=== PATIENT | male | born 1950 | race Caucasian/White ===

== ENCOUNTER → 2019-08-05 11:58 | Outpatient (BNVA) | payer MEDICARE, OTHER, SELFPAY | PROVIDERS: Family Provider Family Medicine; PCP Family Medicine; Visit Provider Podiatrist Foot & Ankle Surgery | DX: S92.334A Nondisplaced fracture of third metatarsal bone, right foot, initial encounter for closed fracture (principal); X58.XXXA Exposure to other specified factors, initial encounter; M79.89 Other specified soft tissue disorders | CPT/HCPCS: 73630 ==

== ENCOUNTER 2019-08-17 14:37 | Outpatient (CLI) | payer MEDICARE, OTHER, SELFPAY ==
--- NOTE | 2019-08-17 14:46 | US_ITS ---
WS: [id number] Subcutaneous ultrasound of the right foot, 08/17/2019 Clinical Data: ?HO'S NEUROMA OF R FOOT/LESION OF PLANTAR NERVE R FOOT Comparison: None. Findings: There is soft tissue swelling over the dorsum of the foot. No definite neuroma is seen. There are no cysts or masses. The heads of the metatarsals could be seen. US/ soft tissue/extremity [id number] Impression: 1. Negative for definite neuroma. 2. Soft tissue swelling over dorsum of foot.
== END 2019-08-17 14:38 | disposition home or self-care (01) ==
LOC: RAD 14:42
PROVIDERS: Family Provider Family Medicine; PCP Family Medicine; Visit Provider Podiatrist Foot & Ankle Surgery
DX: G57.61 Lesion of plantar nerve, right lower limb (principal); M79.89 Other specified soft tissue disorders
CPT/HCPCS: 76882

== ENCOUNTER 2020-03-15 13:28 | Outpatient (CLI) | payer MEDICARE, OTHER, SELFPAY ==
--- NOTE | 2020-03-15 13:48 | XRR_ITS ---
PROCEDURE INFORMATION: Exam: XR Chest, 2 Views Exam date and time: 03/15/2020 2:12 PM Age: 69 years old Clinical indication: Contact with (suspected) exposure to asbestos TECHNIQUE: Imaging protocol: XR of the chest Views: 2 views. COMPARISON: CR Chest 2 views* [id number] 03/13/2017 11:07 AM FINDINGS: Lungs: No lung consolidation or pulmonary edema. Pleural space: No pleural effusion or pneumothorax. No sign of calcified pleural plaque formation. Heart/Mediastinum: The cardiac silhouette is not enlarged. The mediastinal contours are normal. Bones/joints: Slight curvature of the thoracic spine convex to the right. Mild multilevel bridging osteophyte formation in the spine. XR/XR chest 2V* [id number] IMPRESSION: No acute abnormality.
== END 2020-03-15 13:29 | disposition home or self-care (01) ==
LOC: RAD 13:35
PROVIDERS: PCP Family Medicine; Visit Provider Internal Medicine Pulmonary Disease
DX: Z77.090 Contact with and (suspected) exposure to asbestos (principal)
CPT/HCPCS: 71046

== ENCOUNTER 2020-03-16 13:35 | Outpatient (CLI) | payer MEDICARE, SELFPAY ==
--- NOTE | 2020-03-16 13:46 | XRR_ITS ---
PROCEDURE INFORMATION: Exam: XR Temporomandibular Joints, Open and Closed Mouth Exam date and time: 03/16/2020 2:49 PM Age: 69 years old Clinical indication: Jaw pain TECHNIQUE: Imaging protocol: XR of the bilateral temporomandibular joints, open and closed mouth views. COMPARISON: No relevant prior studies available. FINDINGS: Sinuses: Well aerated. No opacification. Bones/joints: There is no fracture or dislocation of the mandible. There is no focal osseous lesion. There is mild flattening and sclerosis of the left condylar head. On transition from closed open-mouth views there is normal anterior translation of the condylar heads bilaterally. Anterior translation is slightly anterior to the apex of the articular eminence bilaterally. Soft tissues: Unremarkable. XR/[place] [id number] IMPRESSION: 1. No fracture or dislocation. 2. Bilateral normal anterior translation on mouth opening. 3. Mild flattening and sclerosis of the left condylar head consistent with osteoarthritis.
== END 2020-03-16 13:36 | disposition home or self-care (01) ==
LOC: RAD 13:39
PROVIDERS: PCP Family Medicine; Visit Provider Family Medicine
DX: R68.84 Jaw pain (principal)
CPT/HCPCS: 70330

== ENCOUNTER 2020-12-18 16:26 | Inpatient (IN) | payer MEDICARE, OTHER, SELFPAY ==
[2020-12-18 16:36] VITALS: BP 169/65; PULSE 79; RESP 16; TEMP 38.3; O2SAT 94; BMI 26.6
--- NOTE | 2020-12-18 16:58 | CTR_ITS ---
PROCEDURE INFORMATION: Exam: CT Head Without Contrast Exam date and time: 12/18/2020 4:58 PM Age: 70 years old Clinical indication: Patient HX: C/O fever and weakness; Additional info: Headache TECHNIQUE: Imaging protocol: Computed tomography of the head without contrast. Radiation optimization: All CT scans at this facility use at least one of these dose optimization techniques: automated exposure control; mA and/or kV adjustment per patient size (includes targeted exams where dose is matched to clinical indication); or iterative reconstruction. COMPARISON: No relevant prior studies available. RADIATION DOSE METRICS: Total DLP (mGy-cm): 952.34 FINDINGS: Brain: There is a focal hypodensity in the left thalamus suggesting a chronic lacunar infarct. There is diffuse cerebral atrophy and chronic microvascular white matter disease. There is no acute intracranial hemorrhage. Cerebral ventricles: There is mild ex vacuo dilation of the lateral ventricles. The basal cisterns are unremarkable. Paranasal sinuses: The paranasal sinuses are clear. Mastoid air cells: The mastoid air cells are clear. Bones/joints: The calvarium is intact. Soft tissues: The visible extracranial soft tissues are unremarkable. CT/CT head wo con* [id number] IMPRESSION: 1. No acute findings. 2. Old lacunar infarct in the left thalamus. Radiation Dose CTDIVOL = (mGy): DLP = 952.34 (mGy-cm)
--- NOTE | 2020-12-18 16:59 | ED_ITS ---
Documented by User: Qamar Mckenzie MD 12/18/20 17:38 HPI - General Adult General: Chief complaint: Fever Stated complaint: chills, n/v, over heated Time Seen by Provider: 12/18/20 16:57 History of Present Illness: HPI narrative: This patient is a 70-year-old male who presents to the emergency room for weakness fatigue and complaint of fever chills. Patient was out in the heat yesterday riding his bike for quite a while. Patient has come home but thinks he got overheated. Fever and a temperature of around 100. Patient complaint weakness fatigue loss of appetite. Did get sick at his stomach and vomited today. This did happen once before couple years ago. is concerned that he had a stroke. States before he had a MRI that showed he had a mild stroke in the past she does not know whether he has had a stroke or a heatstroke. Will do medical evaluation treat as needed Onset (ago): day(s) Associated symptoms: Deny chest pain, dyspnea, headache(s), nausea, rash, palpitations or vomiting Review of Systems General: Reports: 10 or more systems reviewed and unremarkable except in HPI and below Const: Denies: fever(s), chills, body aches or fatigue Eyes: Denies: change in vision or blurry vision ENMT: Denies: throat pain, hoarseness or mouth pain Card: Denies: chest pain, palpitations, irregular heart rhythm, edema, swelling of feet/ankles or lightheadedness Resp: Denies: dyspnea, productive cough, non-productive cough, wheezing or pain on inspiration GI: Denies: abdominal pain, nausea or vomiting : Denies: flank pain, dysuria, urinary frequency, urinary urgency or urinary hesitancy Musc: Reports: extremity pain; Denies: neck pain, back pain, extremity swelling, joint pain, joint swelling, joint redness, joint warmth or limited range of motion Skin/Breast: Denies: rash, pruritus, erythema or skin tenderness Neuro: Reports: weakness in extremities; Denies: headache(s) or numbness in extremities Psych: Denies: anxiety or depression PFSH ED PFSH: Family History Denies family history of Diabetes CAD (coronary artery disease) Clotting disorder Dementia Hyperlipidemia Psychiatric illness Chronic kidney disease (CKD) Suicide Anesthesia complication Bleeding disorder Family history of premature coronary artery disease Lung disease Cancer Hypertension Stroke Social History Smoking and tobacco status: never smoked Alcohol intake: never Current occupational status: retired Physical Exam Const: COMMON NORMALS: no acute distress, average body habitus, patient oriented x3, no limitations, healthy appearing, alert and well nourished ORIENTATION/CONSCIOUSNESS: Yes oriented to person and Yes oriented to place HENMT: COMMON NORMALS: normocephalic, atraumatic, hearing grossly normal bilaterally, external ears normal, EAC's normal, TM's normal bilaterally, Normal external nose present, Normal nasal mucous membranes and turbinates present, moist oral mucous membranes, oropharynx normal, dentition normal and gingiva normal HEAD & SCALP: normocephalic and atraumatic NOSE: Normal external nose present and Normal nasal mucous membranes and turbinates present EXT ERNAL EAR: Yes external ears normal EXTERNAL AUDITORY CANAL: EAC's normal TYMPANIC MEMBRANE: TM's normal bilaterally Neck/C-Spine: COMMON NORMALS: full ROM, no lymphadenopathy, supple, no meningeal signs, no JVD, Thyroid normal and No carotid bruits THYROID: Thyroid normal Chest: COMMONS NORMALS: normal inspection of the chest, normal palpation of entire chest wall, normal inspection of the breasts and normal palpation of the breasts Breast/axilla inspection: Yes normal inspection of the breasts BREAST/AXILLA PALPATION: Yes normal palpation of the breasts Resp: COMMON NORMALS: normal respiratory effort, No retractions, No use of accessory muscles, clear to auscultation bilaterally and percussion normal AUSCULTATION: clear to auscultation bilaterally PERCUSSION: percussion normal Cardio: COMMON NORMALS: no JVD, regular rate, regular rhythm, S1 normal heart sound present, S2 normal heart sound present, No gallops present (Cardio), No clicks present (Cardio), No murmurs present (Cardio), No rub (Cardio) and Peripheral pulses 2+ throughout RATE: regular rate RHYTHM: regular rhythm HEART SOUNDS: S1 normal heart sound present and S2 normal heart sound present PERIPHERAL PULSES: Peripheral pulses 2+ throughout GI: COMMON NORMALS: Normal to inspection, nondistended, normoactive bowel sounds present, Soft to palpation, non-tender, No hepatosplenomegaly present, no masses and no bruits PALPATION: Yes Soft to palpation and Yes No hepatosplenomegaly present : COMMON NORMALS: Yes no CVA tenderness BLADDER/KIDNEY EXAM: Yes no CVA t enderness Back/Pelvis: COMMON NORMALS: no CVA tenderness, thoracic and lumbar spine normal to inspection, no thoracic nor lumbar tenderness, thoraco-lumbar ROM normal and straight leg raise negative bilaterally Extremity: COMMON NORMALS: normal to inspection, full ROM, capillary refill normal, no joint enlargement, no clubbing, cyanosis or edema, no calf tenderness and no pedal edema Neuro: COMMON NORMALS: patient oriented x3, moves all extremities, no focal motor deficits, no sensory deficits noted and deep tendon reflexes 2+ bilaterally SENSORIUM/ORIENTATION: Yes alert, Yes oriented to person and Yes oriented to place MENINGEAL SIGNS: Yes no meningeal signs Course Consultations: Consultation #1: Care transferred to Dr. Edward for shift change Time: 17:38 Vital Signs: Vital signs: Vital Signs Temperature 99.9 F H 12/18/20 19:00 Pulse Rate 85 12/18/20 18:51 Respiratory Rate 18 12/18/20 18:51 Blood Pressure 172/64 12/18/20 18:51 Pulse Oximetry 93 12/18/20 18:51 MDM - General Adult Lab Data: Labs: Lab Results 12/18/20 12/18/20 12/18/20 Range/Units 17:25 17:25 17:39 WBC 14.8 H (4.0-10.0) 10^3/ uL RBC 4.90 (4.1-5.3) 10^6/u L Hgb 15.1 (11.7-16.6) g/dL Hct 44.1 (42.0-52.0) % MCV 90.0 (80-94) fL MCH 30.8 (28.0-34.0) pg MCHC 34.2 (30.0-36.0) g/dL RDW 12.0 L (12.1-15.1) % Plt Count 286 (130-400) 10^3/c mm MPV 9.5 (7.4-10.4) fL Neut % (Auto) 83.1 % Lymph % (Auto) 6.1 % [place] % (Auto) 10.2 % Eos % (Auto) 0.0 % Baso % (Auto) 0.2 % Neut # (Auto) 12.34 H (1.8-7.7) 10^3/u L Lymph # (Auto) 0.9 (0.8-4.8) 10^3/u L [place] # (Auto) 1.5 H (0.2-0.9) 10^3/u L Eos # (Auto) 0.0 (0.0-0.8) 10^3/u L Baso # (Auto) 0.0 (0.0-0.1) 10^3/u L Nucleated RBC % (a uto) 0 % Nucleated RBCs # 0.0 /100WBC PT (12.1-14.9) SECO NDS INR (0.8-1.2) APTT (23.9-36.7) SECO NDS Sodium 137 (136-145) mmol/L Potassium 4.2 (3.5-5.1) mmol/L Chloride 97 L (98-107) mmol/L Carbon Dioxide 27 (22-29) mmol/L Anion Gap 17.2 (5-19) BUN 16 (8-23) mg/dL Creatinine 1.1 (0.7-1.2) mg/dL GFR Calculation Not Reportable Glucose 201 H (65-115) mg/dL Calculated Osmolal ity 291 (285-295) mOsm/k g Calcium 8.5 (8.5-10.5) mg/dL Total Bilirubin 0.5 (0.15-1.2) mg/dL AST 16 (0-40) U/L ALT 14 (0-41) U/L Alkaline Phosphata se 71 (40-130) IU/L Creatine Kinase 122 (39-308) U/L Total Protein 7.1 (6.6-8.7) g/dL Albumin 3.9 (3.5-5.2) g/dL Globulin 3.2 (1.3-4.6) g/dL Urine Color Yellow (Yellow) Urine Appearance Sl hazy (CLEAR) Urine pH 5 (5-7) Ur Specific Gravit y 1.020 (1.005-1.030) Urine Protein 3+ H (Negative) Urine Glucose (UA) 1+ (Normal) Urine Ketones 2+ H (Negative) Urine Blood 2+ H (Negative) Urine Nitrate Negative (Negative) Urine Bilirubin Neg (Negative) Urine Urobilinogen Norm (Negative) mg/dL Ur Leukocyte Meaghan ase Negative (Negative) Urine RBC Rare (0-2) /hpf Urine WBC Rare (0-5) /hpf Ur Squamous Epith Cells None (0-5) /hpf Amorphous Sediment Not Reportable Urine Bacteria Trace (NONE) /hpf Fine Granular Cast s 0-4 H /lpf Urine Mucus 1+ /hpf 12/18/ Range/Units 18:14 WBC (4.0-10.0) 10^3/ uL RBC (4.1-5.3) 10^6/u L Hgb (11.7-16.6) g/dL Hct (42.0-52.0) % MCV (80-94) fL MCH (28.0-34.0) pg MCHC (30.0-36.0) g/dL RDW (12.1-15.1) % Plt Count (130-400) 10^3/c mm MPV (7.4-10.4) fL Neut % (Auto) % Lymph % (Auto) % [place] % (Auto) % Eos % (Auto) % Baso % (Auto) % Neut # (Auto) (1.8-7.7) 10^3/u L Lymph # (Auto) (0.8-4.8) 10^3/u L [place] # (Auto) (0.2-0.9) 10^3/u L Eos # (Auto) (0.0-0.8) 10^3/u L Baso # (Auto) (0.0-0.1) 10^3/u L Nucleated RBC % (a uto) % Nucleated RBCs # /100WBC PT 14.90 (12.1-14.9) SECO NDS INR 1.14 (0.8-1.2) APTT 30.2 (23.9-36.7) SECO NDS Sodium (136-145) mmol/L Potassium (3.5-5.1) mmol/L Chloride (98-107) mmol/L Carbon Dioxide (22-29) mmol/L Anion Gap (5-19) BUN (8-23) mg/dL Creatinine (0.7-1.2) mg/dL GFR Calculation Glucose (65-115) mg/dL Calculated Osmolal ity (285-295) mOsm/k g Calcium (8.5-10.5) mg/dL Total Bilirubin (0.15-1.2) mg/dL AST (0-40) U/L ALT (0-41) U/L Alkaline Phosphata se (40-130) IU/L Creatine Kinase (39-308) U/L Total Protein (6.6-8.7) g/dL Albumin (3.5-5.2) g/dL Globulin (1.3-4.6) g/dL Urine Color (Yellow) Urine Appearance (CLEAR) Urine pH (5-7) Ur Specific Gravit y (1.005-1.030) Urine Protein (Negative) Urine Glucose (UA) (Normal) Urine Ketones (Negative) Urine Blood (Negative) Urine Nitrate (Negative) Urine Bilirubin (Negative) Urine Urobilinogen (Negative) mg/dL Ur Leukocyte Meaghan ase (Negative) Urine RBC (0-2) /hpf Urine WBC (0-5) /hpf Ur Squamous Epith Cells (0-5) /hpf Amorphous Sediment Urine Bacteria (NONE) /hpf Fine Granular Cast s /lpf Urine Mucus /hpf Discharge Plan Discharge Patient Disposition: Admitted As Inpatient Admit Provider: Lakia Grier Clinical Impression: Community acquired pneumonia Qualifiers: Laterality: right Lung location: lower lobe of lung Qualified Code(s): J18.9 - Pneumonia, unspecified organism Condition: Stable Coding Level of Care Code ED Solder Technician for g Fwd Exam Comprehensive Documented by User: Rehana Hester MD 12/18/20 21:01 HPI - General Adult General: Chief complaint: Fever Stated complaint: chills, n/v, over heated Time Seen by Provider: 12/18/20 16:57 PFSH ED PFSH: Family History Denies family history of Diabetes CAD (coronary artery disease) Clotting disorder Dementia Hyperlipidemia Psychiatric illness Chronic kidney disease (CKD) Suicide Anesthesia complication Bleeding disorder Family history of premature coronary artery disease Lung disease Cancer Hypertension Stroke Social History Smoking and tobacco status: never smoked Alcohol intake: never Current occupational status: retired Course Vital Signs: Vital signs: Vital Signs Temperature 99.9 F H 12/18/20 19:00 Pulse Rate 85 12/18/20 18:51 Respiratory Rate 18 12/18/20 18:51 Blood Pressure 172/64 12/18/20 18:51 Pulse Oximetry 93 12/18/20 18:51 MDM - General Adult MDM Narrative: Medical decision making narrative: Patient presents here with cough fever and is hypoxic in the 80s. He is requiring 2 L here. He is a mild elevated of his white count. He has no signs of septic shock. Patient x-ray appears to have a right lower lobe pneumonia. I spoke to hospitalist will admit patient started on IV antibiotics. Lab Data: Labs: Lab Results 12/18/20 12/18/20 12/18/20 Range/Units 17:25 17:25 17:39 WBC 14.8 H (4.0-10.0) 10^3/ uL RBC 4.90 (4.1-5.3) 10^6/u L Hgb 15.1 (11.7-16.6) g/dL Hct 44.1 (42.0-52.0) % MCV 90.0 (80-94) fL MCH 30.8 (28.0-34.0) pg MCHC 34.2 (30.0-36.0) g/dL RDW 12.0 L (12.1-15.1) % Plt Count 286 (130-400) 10^3/c mm MPV 9.5 (7.4-10.4) fL Neut % (Auto) 83.1 % Lymph % (Auto) 6.1 % [place] % (Auto) 10.2 % Eos % (Auto) 0.0 % Baso % (Auto) 0.2 % Neut # (Auto) 12.34 H (1.8-7.7) 10^3/u L Lymph # (Auto) 0.9 (0.8-4.8) 10^3/u L [place] # (Auto) 1.5 H (0.2-0.9) 10^3/u L Eos # (Auto) 0.0 (0.0-0.8) 10^3/u L Baso # (Auto) 0.0 (0.0-0.1) 10^3/u L Nucleated RBC % (a uto) 0 % Nucleated RBCs # 0.0 /100WBC PT (12.1-14.9) SECO NDS INR (0.8-1.2) APTT (23.9-36.7) SECO NDS Sodium 137 (136-145) mmol/L Potassium 4.2 (3.5-5.1) mmol/L Chloride 97 L (98-107) mmol/L Carbon Dioxide 27 (22-29) mmol/L Anion Gap 17.2 (5-19) BUN 16 (8-23) mg/dL Creatinine 1.1 (0.7-1.2) mg/dL GFR Calculation Not Reportable Glucose 201 H (65-115) mg/dL Calculated Osmolal ity 291 (285-295) mOsm/k g Calcium 8.5 (8.5-10.5) mg/dL Total Bilirubin 0.5 (0.15-1.2) mg/dL AST 16 (0-40) U/L ALT 14 (0-41) U/L Alkaline Phosphata se 71 (40-130) IU/L Creatine Kinase 122 (39-308) U/L Total Protein 7.1 (6.6-8.7) g/dL Albumin 3.9 (3.5-5.2) g/dL Globulin 3.2 (1.3-4.6) g/dL Urine Color Yellow (Yellow) Urine Appearance Sl hazy (CLEAR) Urine pH 5 (5-7) Ur Specific Gravit y 1.020 (1.005-1.030) Urine Protein 3+ H (Negative) Urine Glucose (UA) 1+ (Normal) Urine Ketones 2+ H (Negative) Urine Blood 2+ H (Negative) Urine Nitrate Negative (Negative) Urine Bilirubin Neg (Negative) Urine Urobilinogen Norm (Negative) mg/dL Ur Leukocyte Meaghan ase Negative (Negative) Urine RBC Rare (0-2) /hpf Urine WBC Rare (0-5) /hpf Ur Squamous Epith Cells None (0-5) /hpf Amorphous Sediment Not Reportable Urine Bacteria Trace (NONE) /hpf Fine Granular Cast s 0-4 H /lpf Urine Mucus 1+ /hpf // Range/Units 18:14 WBC (4.0-10.0) 10^3/ uL RBC (4.1-5.3) 10^6/u L Hgb (11.7-16.6) g/dL Hct (42.0-52.0) % MCV (80-94) fL MCH (28.0-34.0) pg MCHC (30.0-36.0) g/dL RDW (12.1-15.1) % Plt Count (130-400) 10^3/c mm MPV (7.4-10.4) fL Neut % (Auto) % Lymph % (Auto) % [place] % (Auto) % Eos % (Auto) % Baso % (Auto) % Neut # (Auto) (1.8-7.7) 10^3/u L Lymph # (Auto) (0.8-4.8) 10^3/u L [place] # (Auto) (0.2-0.9) 10^3/u L Eos # (Auto) (0.0-0.8) 10^3/u L Baso # (Auto) (0.0-0.1) 10^3/u L Nucleated RBC % (a uto) % Nucleated RBCs # /100WBC PT 14.90 (12.1-14.9) SECO NDS INR 1.14 (0.8-1.2) APTT 30.2 (23.9-36.7) SECO NDS Sodium (136-145) mmol/L Potassium (3.5-5.1) mmol/L Chloride (98-107) mmol/L Carbon Dioxide (22-29) mmol/L Anion Gap (5-19) BUN (8-23) mg/dL Creatinine (0.7-1.2) mg/dL GFR Calculation Glucose (65-115) mg/dL Calculated Osmolal ity (285-295) mOsm/k g Calcium (8.5-10.5) mg/dL Total Bilirubin (0.15-1.2) mg/dL AST (0-40) U/L ALT (0-41) U/L Alkaline Phosphata se (40-130) IU/L Creatine Kinase (39-308) U/L Total Protein (6.6-8.7) g/dL Albumin (3.5-5.2) g/dL Globulin (1.3-4.6) g/dL Urine Color (Yellow) Urine Appearance (CLEAR) Urine pH (5-7) Ur Specific Gravit y (1.005-1.030) Urine Protein (Negative) Urine Glucose (UA) (Normal) Urine Ketones (Negative) Urine Blood (Negative) Urine Nitrate (Negative) Urine Bilirubin (Negative) Urine Urobilinogen (Negative) mg/dL Ur Leukocyte Meaghan ase (Negative) Urine RBC (0-2) /hpf Urine WBC (0-5) /hpf Ur Squamous Epith Cells (0-5) /hpf Amorphous Sediment Urine Bacteria (NONE) /hpf Fine Granular Cast s /lpf Urine Mucus /hpf Imaging Data^: CXR: Attestation: I personally reviewed and interpreted this imaging study as follows: My impression: rll pneumonia Discharge Plan Discharge Patient Disposition: Admitted As Inpatient Admit Provider: Lakia Grier Clinical Impression: Community acquired pneumonia Qualifiers: Laterality: right Lung location: lower lobe of lung Qualified Code(s): J18.9 - Pneumonia, unspecified organism Condition: Stable Coding Level of Care Code ED Solder Technician for José Miguel Fwd Exam Comprehensive
[2020-12-18] MEDS: sodium chloride 0.9% 1,000 ML 999 ML IV (17:12)
[2020-12-18 17:38] LABS: Basophils % 0.2 %; Hematocrit 44.1 % (42.0-52.0); Hemoglobin 15.1 g/dL (11.7-16.6); Lymphocytes # 0.9 10^3/uL (0.8-4.8); Lymphocytes % 6.1 %; Mean Corpuscular HGB Conc 34.2 g/dL (30.0-36.0); Mean Corpuscular Hemoglobin 30.8 pg (28.0-34.0); Mean Platelet Volume 9.5 fL (7.4-10.4); Monocytes # 1.5 10^3/uL (0.2-0.9); Monocytes % 10.2 %; Neutrophils # 12.34 10^3/uL (1.8-7.7); Neutrophils % 83.1 %; Nucleated Red Blood Cells % 0 %; Platelet Count 286 10^3/cmm (130-400); White Blood Count 14.8 10^3/uL (4.0-10.0)
[2020-12-18 17:58] VITALS: BP 162/59; PULSE 80; RESP 18; O2SAT 98
[2020-12-18 18:02] LABS: Alanine Aminotransferase 14 U/L (0-41); Albumin Level 3.9 g/dL (3.5-5.2); Alkaline Phosphatase 71 IU/L (40-130); Anion Gap 17.2 (5-19); Aspartate Amino Transferase 16 U/L (0-40); Blood Urea Nitrogen 16 mg/dL (8-23); Calcium 8.5 mg/dL (8.5-10.5); Carbon Dioxide 27 mmol/L (22-29); Chloride 97 mmol/L (98-107); Creatine Phosphokinase 122 U/L (39-308); Creatinine Clr Calc Pharmacy 63.4169; Globulin 3.2 g/dL (1.3-4.6); Glucose 201 mg/dL (65-115); Osmolality Calculated 291 mOsm/kg (285-295); Potassium 4.2 mmol/L (3.5-5.1); Sodium 137 mmol/L (136-145); Total Bilirubin 0.5 mg/dL (0.15-1.2); Total Protein 7.1 g/dL (6.6-8.7)
[2020-12-18 18:04] LABS: Bilirubin Urine Neg (Negative); Blood Urine 2+ (Negative); Glucose Urine UA 1+ (Normal); Ketones Urine 2+ (Negative); Leukocyte Esterase Urine Negative (Negative); Nitrate Urine Negative (Negative); Protein Urine 3+ (Negative); Urine Appearance SL Hazy (CLEAR); Urine Color Yellow (Yellow); Urobilinogen Urine Norm (Negative); pH Urine 5 (5-7)
[2020-12-18 18:05] LABS: Add Urine Microscopic? YES
[2020-12-18 18:08] LABS: Add Urine Culture? No; Bacteria Urine TRACE /hpf; Fine Granular Casts Urine 0-4 /lpf; Mucus Urine 1+ /hpf; RBC Urine RARE /hpf (0-2); WBC Urine RARE /hpf (0-5)
[2020-12-18 18:31] LABS: INR 1.14 (0.8-1.2); Partial Thromboplastin Time 30.2 SECONDS (23.9-36.7)
--- NOTE | 2020-12-18 18:35 | XRR_ITS ---
PROCEDURE INFORMATION: Exam: XR Chest Exam date and time: 12/18/2020 6:35 PM Age: 70 years old Clinical indication: Fever TECHNIQUE: Imaging protocol: XR of the chest. Views: 1 view. COMPARISON: CR XR chest 2V* [id number] 03/15/2020 2:06 PM FINDINGS: Lungs: Lung volumes are low. There is mild nonspecific opacity in the lung bases. Pleural spaces: There is no pleural effusion or pneumothorax. Heart/Mediastinum: Cardiomediastinal contours are unremarkable. Bones/joints: Bones are unremarkable. XR/XR chest 1V portable [id number] IMPRESSION: Low lung volumes with mild bibasilar opacity. Possible subsegmental atelectasis. Infection cannot be excluded.
[2020-12-18] MEDS: acetaminophen 325 mg Tablet 650 MG PO (18:44)
--- NOTE | 2020-12-18 18:49 | PC.NURSE ---
informed Physician that patient 02 sat was at 88% on room air. I applied 02@2L and O2 sat is now at 94%
[2020-12-18 18:51] VITALS: BP 172/64; PULSE 85; RESP 18; O2SAT 93
[2020-12-18 19:00] VITALS: TEMP 37.7
[2020-12-18] MEDS: cefTRIAXone 1,000 MG in sodium chloride 0.9% (plus) 50 ML 100 MG IV (19:49)
[2020-12-18] MEDS: azithromycin 500 MG in sodium chloride 0.9% 250 ML 250 MG IV (20:10)
[2020-12-18 20:59] VITALS: BP 132/61; PULSE 74; RESP 22; O2SAT 93
[2020-12-18 21:00] LABS: SARS Covid-2 Antigen Negative (Negative)
[2020-12-18 21:33] VITALS: BP 126/58; PULSE 62; RESP 18; TEMP 37.5; O2SAT 96
--- NOTE | 2020-12-18 22:59 | PM.HP ---
Providers/Chief Complaint Admitting Physician: Lakia Grier MD Primary Care Provider: Edi Bhatia DO Chief Complaint: chills, n/v, over heated History of Present Illness Yann Price is a 70 year old male who presented to the emergency room with chief complaint of general malaise, nausea and vomiting subjective fever and chills. He has had a nonproductive cough for a few days. He went for bike ride yesterday and was afraid that he might of gotten overheated. He has been trying to exercise more lately. Denies any episodes of chest pain or acute dyspnea during exercise. He tries to stay hydrated. This morning when he went to drink some more water however he had some vomiting. He is a known diabetic. His blood sugars have been in the 200s the last few days which is unusual for him. He was generally weak and was concerned that he may have had a heat stroke or possibly a stroke encouraging him to come in today. Temperature was around 100 degrees upon arrival. Blood pressures were a little elevated. He was not tachycardic. Work-up revealed an elevated white count. He developed some hypoxemia necessitating 2 L of oxygen by nasal cannula. Chest x-ray showed nonspecific basilar opacities with infectious source not able to be ruled out. ER physician administered Rocephin and azithromycin and IV fluids. He is being admitted for further evaluation and treatment. Review of Systems Const: Denies: fever(s), chills, change in appetite or change in weight Eyes: Denies: change in vision ENMT: Denies: throat pain or nasal congestion Card: Denies: chest pain, palpitations or edema Resp: Reports: non-productive cough; Denies: dyspnea, productive cough, pain on inspiration or hemoptysis GI: Reports: nausea and vomiting; Denies: abdominal pain, diarrhea or constipation : Denies: difficulty urinating or hematuria Musc: Reports: other (general achiness, no acutely painful or swollen joints) Skin/Breast: Denies: pruritus Neuro: Reports: weakness in extremities (Generalized); Denies: headache(s) or numbness in extremities Psych: Denies: anxiety or depression Endo: Reports: other (High blood sugars) Pratik/Lymph: Denies: easy bruising or easy bleeding Medications/Allergies Home Medications Medication Instructions Recorded Confirmed Last Taken Type lovastatin 10 mg tablet 10 mg PO DAILY 07/09/19 12/18/20 12/18/20 History amlodipine 10 mg tablet 10 mg PO DAILY 08/05/19 12/18/20 12/18/20 History insulin aspar prot-insulin aspart See Rx Instructions .ROUTE .COMPLEX 08/05/19 12/18/20 12/18/20 History 100 unit/mL (70-30) subcutaneous pen aspirin [Aspir-81] 81 mg PO DAILY 12/18/20 12/18/20 12/18/20 History lisinopril 40 mg PO DAILY 12/18/20 12/18/20 12/18/20 History Allergies Allergy/AdvReac Type Severity Reaction Status Date / Time No Known Allergies Allergy Verified 07/10/19 09:04 Additional Medication Information I personally reviewed home medication list and medications received day of admission thus far. 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 Stroke Type 2 diabetes mellitus Surgical History (Updated 12/19/20 @ 00:50 by Lakia Grier MD) History of elbow surgery History of shoulder surgery Family History Denies family history of Diabetes CAD (coronary artery disease) Clotting disorder Dementia Hyperlipidemia Psychiatric illness Chronic kidney disease (CKD) Suicide Anesthesia complication Bleeding disorder Family history of premature coronary artery disease Lung disease Cancer Hypertension Stroke Social History (Updated 12/19/20 @ 01:06 by Lakia Grier MD) Smoking and tobacco status: never smoked Alcohol intake: never Substance/Drug Use: never Household members: spouse Marital status: Current occupational status: retired Vitals/I&O/Wt Last Vital Signs Temp 99.5 F 12/18/20 21:33 Pulse 62 12/18/20 21:33 Resp 18 12/18/20 21:33 BP 126/58 12/18/20 21:33 Pulse Ox 96 12/18/20 21:33 12/18/20 12/18/20 12/18/20 06:59 14:59 22:59 Intake Total 1050 / 1050 Output Total 0 / 0 Balance 1050 / 1050 Weight last 48 hrs Weight 79.379 kg Physical Exam Narrative: EXAM NARRATIVE: Constitutional: Awake and alert, mildly ill-appearing HEENT: Normocephalic atraumatic pupils are equal reactive, extraocular movements are intact, oropharynx is clear, nasopharynx is clear Neck: Supple Respiratory: Decreased breath sounds at both bases, no rales rhonchi or wheezes noted Cardiovascular: Regular rhythm, no murmurs, 1+ pulses throughout Abdomen: Soft, nontender, positive bowel sounds Extremities: No pitting edema Skin: Exposed skin surfaces with evidence of sun exposure, no acute rashes noted Neuro: Speech clear, face symmetric, moves all extremities Psych: Flat affect Data : 12/18/20 17:25 12/18/20 17:25 Micro: Microbiology 12/18/20 20:03 Blood Culture - Preliminary Blood SPECIMEN COLLECTED 12/18/20 19:50 Blood Culture - Preliminary Blood SPECIMEN COLLECTED Other data: Laboratory Results WBC 14.8 10^3/uL (4.0-10.0) H 12/18/20 17:25 RBC 4.90 10^6/uL (4.1-5.3) 12/18/20 17:25 Hgb 15.1 g/dL (11.7-16.6) 12/18/20 17:25 Hct 44.1 % (42.0-52.0) 12/18/20 17:25 MCV 90.0 fL (80-94) 12/18/20 17:25 MCH 30.8 pg (28.0-34.0) 12/18/20 17:25 MCHC 34.2 g/dL (30.0-36.0) 12/18/20 17:25 RDW 12.0 % (12.1-15.1) L 12/18/20 17:25 Plt Count 286 10^3/cmm (130-400) 12/18/20 17:25 MPV 9.5 fL (7.4-10.4) 12/18/20 17:25 Neut % (Auto) 83.1 % 12/18/20 17:25 Lymph % (Auto) 6.1 % 12/18/20 17:25 [place] % (Auto) 10.2 % 12/18/20 17:25 Eos % (Auto) 0.0 % 12/18/20 17: Baso % (Auto) 0.2 % 12/18/20 17:25 Neut # (Auto) 12.34 10^3/uL (1.8-7.7) H 12/18/20 17:25 Lymph # (Auto) 0.9 10^3/uL (0.8-4.8) 12/18/20 17:25 [place] # (Auto) 1.5 10^3/uL (0.2-0.9) H 12/18/20 17:25 Eos # (Auto) 0.0 10^3/uL (0.0-0.8) 12/18/20 17:25 Baso # (Auto) 0.0 10^3/uL (0.0-0.1) 12/18/20 17:25 Nucleated RBC % (auto) 0 % 12/18/20 17:25 Nucleated RBCs # 0.0 /100WBC 12/18/20 17:25 PT 14.90 SECONDS (12.1-14.9) 12/18/20 18:14 INR 1.14 (0.8-1.2) 12/18/20 18:14 APTT 30.2 SECONDS (23.9-36.7) 12/18/20 18:14 Sodium 137 mmol/L (136-145) 12/18/20 17:25 Potassium 4.2 mmol/L (3.5-5.1) 12/18/20 17:25 Chloride 97 mmol/L (98-107) L 12/18/20 17:25 Carbon Dioxide 27 mmol/L (22-29) 12/18/20 17:25 Anion Gap 17.2 (5-19) 12/18/20 17:25 BUN 16 mg/dL (8-23) 12/18/20 17:25 Creatinine 1.1 mg/dL (0.7-1.2) 12/18/20 17:25 GFR Calculation Not Reportable 12/18/20 17:25 Glucose 201 mg/dL (65-115) H 12/18/20 17:25 Calculated Osmolality 291 mOsm/kg (285-295) 12/18/20 17:25 Calcium 8.5 mg/dL (8.5-10.5) 12/18/20 17:25 Total Bilirubin 0.5 mg/dL (0.15-1.2) 12/18/20 17:25 AST 16 U/L (0-40) 12/18/20 17:25 ALT 14 U/L (0-41) 12/18/20 17:25 Alkaline Phosphatase 71 IU/L (40-130) 12/18/20 17:25 Creatine Kinase 122 U/L (39-308) 12/18/20 17:25 Total Protein 7.1 g/dL (6.6-8.7) 12/18/20 17:25 Albumin 3.9 g/dL (3.5-5.2) 12/18/20 17:25 Globulin 3.2 g/dL (1.3-4.6) 12/18/20 17:25 Urine Color Yellow (Yellow) 12/18/20 17:39 Urine Appearance Sl hazy (CLEAR) 12/18/20 17:39 Urine pH 5 (5-7) 12/18/20 17:39 Ur Specific [place] 1.020 (1.005-1.030) 12/18/20 17:39 Urine Protein 3+ (Negative) H 12/18/20 17:39 Urine Glucose (UA) 1+ (Normal) 12/18/20 17:39 Urine Ketones 2+ (Negative) H 12/18/20 17:39 Urine Blood 2+ (Negative) H 12/18/20 17:39 Urine Nitrate Negative (Negative) 12/18/20 17:39 Urine Bilirubin Neg (Negative) 12/18/20 17:39 Urine Urobilinogen Norm mg/dL (Negative) 12/18/20 17:39 Ur Leukocyte Esterase Negative (Negative) 12/18/20 17:39 Urine RBC Rare /hpf (0-2) 12/18/20 17:39 Urine WBC Rare /hpf (0-5) 12/18/20 17:39 Ur Squamous Epith Cells None /hpf (0-5) 12/18/20 17:39 Amorphous Sediment Not Reportable 12/18/20 17:39 Urine Bacteria Trace /hpf (NONE) 12/18/20 17:39 Fine Granular Casts 0-4 /lpf H 12/18/20 17:39 Urine Mucus 1+ /hpf 12/18/20 17:39 SARS-CoV-2 Ag (Rapid) Negative (Negative) 12/18/20 20:[address] 12/18/20 16:58 IMPRESSION: 1. No acute findings. 2. Old lacunar infarct in the left thalamus. Radiation Dose CTDIVOL = (mGy): DLP = 952.34 (mGy-cm) Chest X-Ray 12/18/20 18:35 IMPRESSION: Low lung volumes with mild bibasilar opacity. Possible subsegmental atelectasis. Infection cannot be excluded. A&P Assessment and plan (1) Community acquired pneumonia: Currently presumptive diagnosis based on fever, elevated white count, nonspecific chest x-ray findings, cough and hypoxemia. Alternative source of infection is also within the differential. He has had increased blood sugars for the last few days as well as a nonproductive cough. Cardiovascular source of the symptoms should also be considered. Component of heat exhaustion seems less likely with current electrolytes and CK level. Status: Acute Qualifiers: Laterality: right Lung location: lower lobe of lung Qualified Code(s): J18.9 - Pneumonia, unspecified organism (2) Type 2 diabetes mellitus: Insulin requiring, currently with hyperglycemia Status: Chronic (3) Hypertension: Chronically on amlodipine and lisinopril Status: Chronic Additional A&P Information Observation admission currently Check BNP, troponin, cardiac enzymes Check procalcitonin Hold further IV fluids currently Will continue with the Rocephin and azithromycin, add duo nebs as needed Continue oxygen therapy, weaning as able Continue home amlodipine and lisinopril Continue aspirin therapy Continue home 7030 twice a day and add sliding scale insulin for diabetes coverage Had negative rapid Covid antigen in the emergency room and had Covid vaccine 2 dose series earlier this year with second dose administered in October Blood cultures were collected in the emergency room Pending results of described evaluation noted above further care such as fluids and possibly additional evaluation or treatments will be addressed Supportive care otherwise Currently low risk for VTE given observation status, will address DVT prophylaxis accordingly as required Plans were discussed briefly with and patient in the emergency room and in a bit more detail with patient on the floor. They were given an opportunity to ask questions. Anticipated Disposition: Home Code Status: Full code Attestations Medical Necessity Statement*: Currently anticipate a stay less than two midnights in this patient presenting with issues as noted above. Coding Level of Care Code Acute Reception Interviewer for José Miguel Fwliz[employer] Diagnoses Community acquired pneumonia J18.9 Laterality: right Lung location: lower lobe of lung Type 2 diabetes mellitus E11.9 Hypertension I10
[2020-12-18 23:35] LABS: NT Pro B Type Natriuretic Pept 566 pg/mL (0-125); Procalcitonin 0.46 ng/mL (0-0.5)
[2020-12-19] VITALS (16 sets, daily range): BP systolic 142–169; BP diastolic 57–73; PULSE 65–79; RESP 16–20; TEMP 37–39.5; O2SAT 92–100
[2020-12-19 01:59] LABS: Troponin(5th) Baseline 24 ng/L (0-15)
--- NOTE | 2020-12-19 03:04 | ECG_ITS ---
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 Measurements Intervals [place] Rate: 77 P: 64 PA: 166 QRS: -13 QRSD: 93 T: 30 QT: 356 QTc: 404 Interpretive Statements SINUS RHYTHM Compared to ECG 03/13/2017 10:39:38 Sinus bradycardia no longer present T-wave abnormality no longer present Electronically Signed On 12-19-2020 23:01:29 CDT by Amy Marcus M.D. [email or web address] [email or web address].Patient Home Monitoring/store/OM/[id number]
[2020-12-19 03:59] LABS: Basophils % 0.3 %; Eosinophils % 0.1 %; Hematocrit 39.2 % (42.0-52.0); Hemoglobin 13.3 g/dL (11.7-16.6); Lymphocytes # 0.6 10^3/uL (0.8-4.8); Lymphocytes % 5.2 %; Mean Corpuscular HGB Conc 33.9 g/dL (30.0-36.0); Mean Corpuscular Hemoglobin 31.1 pg (28.0-34.0); Mean Corpuscular Volume 91.6 fL (80-94); Monocytes # 1.3 10^3/uL (0.2-0.9); Monocytes % 11.2 %; Neutrophils # 9.48 10^3/uL (1.8-7.7); Neutrophils % 82.7 %; Nucleated Red Blood Cells % 0 %; Platelet Count 257 10^3/cmm (130-400); Red Blood Count 4.28 10^6/uL (4.1-5.3); White Blood Count 11.5 10^3/uL (4.0-10.0)
[2020-12-19 04:21] LABS: Anion Gap 14.3 (5-19); Blood Urea Nitrogen 15 mg/dL (8-23); C Reactive Protein 157.2 mg/L (0.0-4.9); Calcium 7.9 mg/dL (8.5-10.5); Carbon Dioxide 26 mmol/L (22-29); Chloride 100 mmol/L (98-107); Cholesterol 137 mg/dL (0-200); Glucose 203 mg/dL (65-115); HDL Cholesterol 72 mg/dL (60-100); LDL Cholesterol Calculated 53 mg/dL (50-129); LDL HDL Ratio 0.74 RATIO (0.00-3.22); Magnesium 1.9 mg/dL (1.7-2.3); Osmolality Calculated 289 mOsm/kg (285-295); Phosphorus 1.5 mg/dL (2.5-4.5); Potassium 4.3 mmol/L (3.5-5.1); Sodium 136 mmol/L (136-145); Triglycerides 62 mg/dL (0-150)
[2020-12-19 04:23] LABS: Troponin 5 2HR 26.13 ng/L (0-15); Troponin 5 2HR Delta 2.13 ABS# (0-10)
[2020-12-19 04:26] LABS: Estmated Average Glucose 146; Hemoglobin A1C 6.7 % (4.0-6.0)
--- NOTE | 2020-12-19 06:00 | USCV_ITS ---
Yann Price Age: 70 Gender: M : 1950 Exam Date: 12/19/2020 05:34 Ordering Phys: Lakia Grier MD Technologist: Maria A Radford Exam Location: [facility] [place] Indication: DM ELEVATED HNP COUGH BP: 169 / 61 HR: 67 Rhythm: Atrial fibrillation Technical Quality: Adequate MEASUREMENTS (Male / Female) Normal Values 2D ECHO LV Diastolic Diameter PLAX 4.2 cm 4.2 - 5.9 / 3.9 - 5.3 cm LV Systolic Diameter PLAX 2.5 cm LV Chamber Size 4.7 cm IVS Diastolic Thickness 1.6 cm 0.6 - 1.0 / 0.6 - 0.9 cm IVS Systolic Thickness 2.3 cm LVPW Diastolic Thickness 1.4 cm 0.6 - 1.0 / 0.6 - 0.9 cm LVPW Systolic Thickness 1.8 cm RV Chamber Size 2.9 cm LVOT Diameter 2.0 cm LV Ejection Fraction 2D Teich 70.7 % LV Ejection Fraction MOD 2C 77.3 % LV Ejection Fraction 2C AL 77.9 % LA Diameter 3.7 cm LA Width 3.7 cm LA Height 4.0 cm RA Width 3.1 cm RA Height 4.3 cm Aorta at Sinotubular Diameter 3.1 cm M-MODE LV Diastolic Diameter MM 5.3 cm 4.2 - 5.9 / 3.9 - 5.3 cm LV Systolic Diameter MM 2.8 cm LV Ejection Fraction MM Teich 78.5 % IVS Diastolic Thickness MM 1.3 cm 0.6 - 1.0 / 0.6 - 0.9 cm IVS Systolic Thickness MM 1.7 cm LVPW Diastolic Thickness MM 1.7 cm 0.6 - 1.0 / 0.6 - 0.9 cm LVPW Systolic Thickness MM 1.8 cm RV Diastolic Diameter MM 2.4 cm Aortic Annulus Diameter 3.3 cm LA Ao Ratio MM 1.2 MV E Point Septal Separation 0.1 cm DOPPLER AV Peak Velocity 133.0 cm/s LVOT Peak Velocity 141.0 cm/s AV Area Cont Eq vti 3.2 cm squared AV Area Cont Eq pk 3.5 cm squared MV Area PHT 3.5 cm squared Mitral E to A Ratio 51.1 MV E' Velocity 65.0 cm/s Mitral E to MV E' Ratio 10.9 Mitral E to LV E' Lateral Ratio 9.7 Mitral E to LV E' Septal Ratio 12.5 TR Peak Velocity 211.1 cm/s TR Peak Gradient 17.8 mmHg TR Mean Velocity 121.7 cm/s TR Mean Gradient 7.4 mmHg TR Velocity Time Integral 44.6 cm TV Peak E Velocity 66.0 cm/s Right Atrial Pressure 3.0 mmHg Pulmonary Artery Systolic Pressu 20.8 mmHg PV Peak Velocity 87.0 cm/s RV Acceleration Time 0.1 s RV Ejection Time 0.4 s RV AcT/ET 0.3 FINDINGS Left Ventricle Normal left ventricular size. LV systolic function is normal with EF of 55-60%. No regional wall motion abnormalities. Normal diastolic filling pattern. Right Ventricle The right ventricle is normal in size and function. Right Atrium The right atrium is normal in size. Left Atrium The left atrium is normal in size. Mitral Valve Structurally normal mitral valve without significant stenosis or prolapse. There is no mitral regurgitation. Aortic Valve Structurally normal aortic valve without significant sclerosis or stenosis. There is no aortic regurgitation. Tricuspid Valve Structurally normal tricuspid valve without significant stenosis. Trace tricuspid regurgitation. Insufficient TR jet to calculate RVSP Pulmonic Valve Structurally normal pulmonic valve without significant stenosis. There is no pulmonic regurgitation. Pericardium Normal pericardium without effusion. Aorta Normal ascending aorta dimension. CONCLUSIONS LV systolic function is normal with EF of 55-60% Diastolic function is normal Trace tricuspid regurgitation Compared to prior echocardiogram from 2012, no significant changes are noted Chet Lopez MD (Electronically Signed) Final Date: 19 December 2020 11:09 S
--- NOTE | 2020-12-19 07:04 | ECG_ITS ---
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 Measurements Intervals [place] Rate: 76 P: 52 ND: 167 QRS: -6 QRSD: 91 T: 22 QT: 339 QTc: 383 Interpretive Statements SINUS RHYTHM WITH SINUS ARRHYTHMIA NONSPECIFIC T-WAVE ABNORMALITY Compared to ECG 12/19/2020 03:17:51 T-wave abnormality now present Electronically Signed On 12-19-2020 22:58:31 CDT by Amy Marcus M.D. [email or web address] hospitalFPW Enteprises[facility].[place] In/store/OM/[id number]/[id number]
[2020-12-19 07:28] LABS: Glucose Point of Care 176 mg/dL (70-110)
[2020-12-19 07:55] LABS: Troponin 5 6HR 23.95 ng/L (0-15)
[2020-12-19] MEDS: insulin aspart 70/30 100 units/1 mL 15 UNIT SUBCUT (07:57)
[2020-12-19] MEDS: famotidine 20 mg Tablet PO ×2 (07:58→17:58)
[2020-12-19] MEDS: atorvastatin 40 mg Tablet 10 MG PO (07:58)
[2020-12-19] MEDS: aspirin 81 mg EC Tablet PO (07:58)
[2020-12-19] MEDS: lisinopril 20 mg Tablet 40 MG PO (07:58)
[2020-12-19] MEDS: amlodipine 10 mg Tablet PO (07:59)
[2020-12-19 08:11] LABS: Troponin 5 6HR Delta -0.05 ng/L (0-12)
[2020-12-19] MEDS: ipratropium-albuterol 3 mL Neb INHALATION (08:42)
--- NOTE | 2020-12-19 11:45 | P.PN_ITS ---
Subjective Subjective: Interval history: Yann reports he feels much better. Denies being short of breath this morning on oxygen. Occasional cough. History and physical reviewed. Medications: Reviewed: Yes Vitals/I&O/Wt Last Vital Signs Temp 98.9 F 12/19/20 11:31 Pulse 75 12/19/20 11:31 Resp 18 12/19/20 11:31 BP 142/57 12/19/20 11:31 Pulse Ox 92 12/19/20 11:31 12/18/20 12/19/20 12/19/20 22:59 06:59 14:59 Intake Total 1050 / 1050 250 / 1300 120 / 120 Output Total 0 / 0 375 / 375 250 / 250 Balance 1050 / 1050 -125 / 925 -130 / -130 Weight last 48 hrs Weight 84.459 kg Weight 80.649 kg Weight 79.379 kg Physical Exam Narrative: EXAM NARRATIVE: General exam no apparent distress. T-max 100.9 Cardiovascular regular rate and rhythm without murmur Lungs a few coarse breath sounds at the bases. No wheezing. Abdomen is soft nontender with positive bowel sounds Extremities no cyanosis clubbing or edema Data : 12/19/20 03:14 12/19/20 03:14 Micro: Microbiology 12/18/20 20:03 Blood Culture - Preliminary Blood SPECIMEN COLLECTED 12/18/20 19:50 Blood Culture - Preliminary Blood SPECIMEN COLLECTED A&P Assessment and plan (1) Community acquired pneumonia: Rocephin and Zithromax IV Sputum culture Await blood cultures Rapid Covid negative. Patient has been vaccinated. Status: Acute Qualifiers: Laterality: right Lung location: lower lobe of lung Qualified Code(s): J18.9 - Pneumonia, unspecified organism (2) Type 2 diabetes mellitus: Sliding scale insulin Status: Chronic (3) Hypertension: Continue home medications Status: Chronic Additional A&P Information Elevated BNP. Echocardiogram ordered. IV fluid held. Troponin with slight elevation but no significant delta. Full code Likely will need change to regular admission. He was febrile this morning. He is he still on 3 L of oxygen. He clearly needs more IV therapy prior to going home for his pneumonia. Lovenox for DVT prophylaxis. Attestations Medical Necessity Statement*: Needs continued hospitalization for IV antibiotics secondary to pneumonia with hypoxia and associated fever. Coding Level of Care Code Acute Pipe Line Repairer for Chg Fwd Diagnoses Community acquired pneumonia J18.9 Laterality: right Lung location: lower lobe of lung Type 2 diabetes mellitus E11.9 Hypertension I10
[2020-12-19 12:24] LABS: Glucose Point of Care 191 mg/dL (70-110)
[2020-12-19] MEDS: enoxaparin 40 mg/0.4 mL Syringe SUBCUT (12:41)
--- NOTE | 2020-12-19 14:10 | PC.NURSE ---
patient up to the bathroom with out oxygen. directed patient to leave oxygen off when he returned to bed. after a few minutes of rest in bed on room air patient o2 saturation was 87-88%. patient place on 2L of oxygen, and o2 sat returned to 92%. encouraged continued use of incentive spirometer.
--- NOTE | 2020-12-19 14:37 | DCPLANNER ---
Per rounding, will likely stay until tomorrow and may need 02.
[2020-12-19] MEDS: acetaminophen 325 mg Tablet 650 MG PO (15:50)
[2020-12-19 17:07] LABS: Glucose Point of Care 74 mg/dL (70-110)
[2020-12-19] MEDS: cefTRIAXone 1,000 MG in sodium chloride 0.9% (plus) 50 ML 100 MG IV (17:53)
[2020-12-19] MEDS: azithromycin 250 mg Tablet 500 MG PO (17:58)
[2020-12-19 19:07] LABS: Glucose Point of Care 172 mg/dL (70-110)
[2020-12-19 21:19] LABS: Glucose Point of Care 213 mg/dL (70-110)
[2020-12-20] VITALS (11 sets, daily range): BP systolic 97–164; BP diastolic 61–77; PULSE 63–89; RESP 16–20; TEMP 36.4–39.1; O2SAT 93–100
[2020-12-20] MEDS: acetaminophen 325 mg Tablet 650 MG PO ×2 (01:29→08:38)
[2020-12-20 06:05] LABS: Basophils % 0.4 %; Eosinophils # 0.1 10^3/uL (0.0-0.8); Eosinophils % 0.7 %; Hematocrit 38.3 % (42.0-52.0); Hemoglobin 12.8 g/dL (11.7-16.6); Lymphocytes # 1.1 10^3/uL (0.8-4.8); Lymphocytes % 11.2 %; Mean Corpuscular HGB Conc 33.4 g/dL (30.0-36.0); Mean Corpuscular Hemoglobin 30.3 pg (28.0-34.0); Mean Corpuscular Volume 90.8 fL (80-94); Mean Platelet Volume 10.4 fL (7.4-10.4); Monocytes # 1.6 10^3/uL (0.2-0.9); Monocytes % 17.1 %; Neutrophils # 6.72 10^3/uL (1.8-7.7); Neutrophils % 70.2 %; Nucleated Red Blood Cells % 0 %; Platelet Count 267 10^3/cmm (130-400); Red Blood Count 4.22 10^6/uL (4.1-5.3); Red Cell Distribution Width 11.7 % (12.1-15.1); White Blood Count 9.6 10^3/uL (4.0-10.0)
[2020-12-20 06:21] LABS: Alanine Aminotransferase 11 U/L (0-41); Albumin Level 3.1 g/dL (3.5-5.2); Alkaline Phosphatase 60 IU/L (40-130); Anion Gap 13.2 (5-19); Aspartate Amino Transferase 13 U/L (0-40); Blood Urea Nitrogen 17 mg/dL (8-23); Calcium 8.3 mg/dL (8.5-10.5); Carbon Dioxide 27 mmol/L (22-29); Chloride 99 mmol/L (98-107); Globulin 2.7 g/dL (1.3-4.6); Glucose 176 mg/dL (65-115); Osmolality Calculated 286 mOsm/kg (285-295); Potassium 4.2 mmol/L (3.5-5.1); Sodium 135 mmol/L (136-145); Total Bilirubin 0.3 mg/dL (0.15-1.2); Total Protein 5.8 g/dL (6.6-8.7)
[2020-12-20 06:55] LABS: Glucose Point of Care 167 mg/dL (70-110)
--- NOTE | 2020-12-20 08:19 | XR_ITS ---
WS: [id number] Exam: XR chest 1V portable [id number] Date/Time of Exam: 12/20/2020 8:20 AM Reason For Exam: follow up pneumonia Comparison 12/18/2020. There is increasing infiltrate in the right lower lung zone suggesting right middle lobe pneumonia. T he left lung remains clear. Cardiomediastinal structures are unremarkable for portable technique. No pneumothorax. Bony elements are unremarkable. XR/XR chest 1V portable [id number] IMPRESSION: 1. Increasing infiltrate in the right lower lung zone suspicious for right midd le lobe pneumonia.
[2020-12-20] MEDS: aspirin 81 mg EC Tablet PO (08:38)
[2020-12-20] MEDS: atorvastatin 40 mg Tablet 10 MG PO (08:39)
[2020-12-20] MEDS: famotidine 20 mg Tablet PO ×2 (08:39→17:41)
[2020-12-20] MEDS: amlodipine 10 mg Tablet PO (08:39)
[2020-12-20] MEDS: insulin aspart 70/30 100 units/1 mL 15 UNIT SUBCUT ×2 (08:42→17:42)
--- NOTE | 2020-12-20 10:28 | PC.CHAP ---
Pastoral Care Encounter/Spiritual Assessment Type of Contact [] Declined bingo usher visit [] Patient/Family/Request visit [] Outpatient visit [] Follow-up visit [] Physician referral [] Code/Alert [x] Routine visit [] Staff referral [] Actively dying [] Patient sleeping [] Family support [] [] Out of room [] Palliative care [] [] Receiving care in room [] Pre-surgical visit [] Trauma [] Long length of stay [] ICU visit [] Other: Relational/Emotional Strength [] Patient feels connected with others/family/visitors/staff [] Distress [] Loneliness/isolation [] Abandonment Spirituality of Patient [] Person of Renetta [] Attends Faith of their Renetta [] Believes in Prayer [] Reads Bible or Protestant materials [] There are Spiritual issues to be addressed Database Analyst Interventions [x] Prayer [] Active listening [] Non-anxious presence [] Spiritual/emotional support [] Crisis/trauma care [] Spiritual counseling [] Bereavement support [] Provided bereavement packet [] Provided Bible/devotional materials [] Provided toy/stuffed animal, coloring book to patient or family member [] Provided Communion [] Anointing/[place] [] Salvation [x] Completed spiritual assessment [] Other: Impact on Illness or Injury [] Angry [] Fearful [] Anxious [] Often cries [] Exhaustion [] Unable to work [] Unable to attend congregational [] Unable to walk/stand [] Unable to read [] Unable to drive [] Unable to eat/drink [] Unable to sleep [] Unable to be with family [] Patient intubated [] Other: Summary Time spent with patient 5 min
[2020-12-20 11:29] LABS: Glucose Point of Care 219 mg/dL (70-110)
--- NOTE | 2020-12-20 11:33 | PM.PN ---
Subjective Subjective: Interval history: Yann reports he feels better today. He did have a fever last night. He is still on 2 L of oxygen. He is coughing some, and winded with exertion. Medications: Reviewed: Yes Medication Review Details: I personally reviewed home medication list and medications received day of admission thus far. Vitals/I&O/Wt Last Vital Signs Temp 97.6 F 12/20/20 07:32 Pulse 80 12/20/20 09:52 Resp 18 12/20/20 09:52 BP 97/64 12/20/20 07:32 Pulse Ox 94 12/20/20 09:52 12/19/20 12/20/20 12/20/20 22:59 06:59 14:59 Intake Total 410 / 650 600 / 600 Output Total 0 / 250 1 / 251 Balance 410 / 400 -1 / 399 600 / 600 Weight last 48 hrs Weight 81.057 kg Weight 84.459 kg Weight 80.649 kg Weight 79.379 kg Physical Exam Narrative: EXAM NARRATIVE: General exam no apparent distress. T-max 103.1 Cardiovascular regular rate and rhythm without murmur Lungs coarse breath sounds right lung. Abdomen is soft nontender with positive bowel sounds Extremities no cyanosis clubbing or edema Data : 12/20/20 04:46 12/20/20 04:46 Micro: Microbiology 12/18/20 20:03 Blood Culture - Preliminary Blood NEGATIVE TO DATE 12/18/20 19:50 Blood Culture - Preliminary Blood NEGATIVE TO DATE Other data: Right lower lobe infiltrate on repeat x-ray today A&P Assessment and plan (1) Community acquired pneumonia: Rocephin and Zithromax IV. Rocephin dose 1 g IV every 12 hours Sputum culture Await blood cultures. Negative to date Rapid Covid negative. Patient has been vaccinated. Status: Acute Qualifiers: Laterality: right Lung location: lower lobe of lung Qualified Code(s): J18.9 - Pneumonia, unspecified organism (2) Type 2 diabetes mellitus: Sliding scale insulin Status: Chronic (3) Hypertension: Continue home medications. Hold lisinopril today as blood pressure is somewhat lower Status: Chronic Additional A&P Information Elevated BNP. Echocardiogram normal troponin with slight elevation but no significant delta. Full code Lovenox for DVT prophylaxis. Attestations Medical Necessity Statement*: Needs continued hospitalization for IV antibiotics secondary to pneumonia. Coding Level of Care Code Acute Pressurization Mechanic for g Fwd Diagnoses Community acquired pneumonia J18.9 Laterality: right Lung location: lower lobe of lung Type 2 diabetes mellitus E11.9 Hypertension I10
[2020-12-20] MEDS: enoxaparin 40 mg/0.4 mL Syringe SUBCUT (11:58)
[2020-12-20] MEDS: cefTRIAXone 1,000 MG in sodium chloride 0.9% (plus) 50 ML 100 MG IV ×2 (11:58→23:58)
[2020-12-20 17:28] LABS: Glucose Point of Care 118 mg/dL (70-110)
[2020-12-20] MEDS: azithromycin 250 mg Tablet 500 MG PO (17:41)
[2020-12-20 19:42] LABS: Glucose Point of Care 283 mg/dL (70-110)
[2020-12-21 00:33] LABS: Glucose Point of Care 80 mg/dL (70-110)
[2020-12-21 03:43] VITALS: BP 159/67; PULSE 65; RESP 14; TEMP 37.2; O2SAT 95
[2020-12-21 06:00] VITALS: PULSE 59
[2020-12-21 06:30] LABS: Glucose Point of Care 143 mg/dL (70-110)
[2020-12-21 06:33] LABS: Basophils % 0.2 %; Eosinophils # 0.3 10^3/uL (0.0-0.8); Eosinophils % 3.7 %; Hematocrit 40.9 % (42.0-52.0); Hemoglobin 13.8 g/dL (11.7-16.6); Lymphocytes # 1.2 10^3/uL (0.8-4.8); Lymphocytes % 14.3 %; Mean Corpuscular HGB Conc 33.7 g/dL (30.0-36.0); Mean Corpuscular Hemoglobin 30.4 pg (28.0-34.0); Mean Corpuscular Volume 90.1 fL (80-94); Mean Platelet Volume 10.2 fL (7.4-10.4); Monocytes # 1.6 10^3/uL (0.2-0.9); Monocytes % 17.9 %; Neutrophils # 5.52 10^3/uL (1.8-7.7); Neutrophils % 63.6 %; Nucleated Red Blood Cells % 0 %; Platelet Count 325 10^3/cmm (130-400); Red Blood Count 4.54 10^6/uL (4.1-5.3); Red Cell Distribution Width 11.7 % (12.1-15.1); White Blood Count 8.7 10^3/uL (4.0-10.0)
[2020-12-21 06:51] LABS: Alanine Aminotransferase 16 U/L (0-41); Albumin Level 3.1 g/dL (3.5-5.2); Alkaline Phosphatase 63 IU/L (40-130); Aspartate Amino Transferase 17 U/L (0-40); Blood Urea Nitrogen 15 mg/dL (8-23); Calcium 8.1 mg/dL (8.5-10.5); Carbon Dioxide 28 mmol/L (22-29); Chloride 100 mmol/L (98-107); Glucose 141 mg/dL (65-115); Osmolality Calculated 285 mOsm/kg (285-295); Sodium 136 mmol/L (136-145); Total Bilirubin 0.3 mg/dL (0.15-1.2); Total Protein 6.1 g/dL (6.6-8.7)
[2020-12-21 07:08] VITALS: PULSE 73; RESP 17; O2SAT 93
[2020-12-21 07:16] VITALS: BP 134/63; PULSE 70; RESP 17; TEMP 36.9; O2SAT 93
[2020-12-21] MEDS: famotidine 20 mg Tablet PO (07:58)
[2020-12-21] MEDS: insulin aspart 70/30 100 units/1 mL 15 UNIT SUBCUT (07:58)
[2020-12-21] MEDS: aspirin 81 mg EC Tablet PO (07:59)
[2020-12-21] MEDS: atorvastatin 40 mg Tablet 10 MG PO (07:59)
[2020-12-21] MEDS: amlodipine 10 mg Tablet PO (07:59)
[2020-12-21 10:35] LABS: Glucose Point of Care 155 mg/dL (70-110)
--- NOTE | 2020-12-21 10:54 | PM.DCS ---
Discharge Providers Date of Admission: 12/19/20 14:00 Date of Discharge: December 21, 2020 Attending Provider at Admission: Lakia Grier MD Attending Provider at Discharge: Rudy Felix MD Primary Care Provider: Edi Bhatia DO Diagnoses at Discharge Discharge Diagnosis (1) Community acquired pneumonia: Status: Acute Qualifiers: Laterality: right Lung location: lower lobe of lung Qualified Code(s): J18.9 - Pneumonia, unspecified organism (2) Type 2 diabetes mellitus: Status: Chronic (3) Hypertension: Status: Chronic Reason for Visit Reason for Visit: chills, n/v, over heated Hospital Course Hospital Course Yann is a 70-year-old white male who presented to the hospital with fever, cough, and shortness of breath. He was diagnosed with pneumonia and started on Rocephin and azithromycin. Oxygen was required. Troponin was slightly elevated indicating a type II elevation as no significant troponin was noted. BNP was slightly high at 566. Echocardiogram demonstrated preserved EF and was essentially normal. With treatment, he gradually improved, becoming afebrile. White blood cell count returned to normal. He was able to wean off oxygen by his last hospital day. Strength was improving. It was thought he could discharge home with close follow-up. He has a history of significant snoring while sleeping and could be a candidate for a sleep study. He will need a repeat x-ray in 3 to 4 weeks to demonstrate clearing of his pneumonia. He will finish 7 days of Levaquin. Physical Exam Narrative: EXAM NARRATIVE: General exam no apparent distress Cardiovascular regular rate and rhythm without murmur Lungs few crackles right lung Abdomen is soft nontender with positive bowel sounds Extremities no cyanosis clubbing or edema Discharge Data Data Completed and Pending: Completed Studies During Hospitalization Category Date Time Status CT head wo con* [id number] Stat Cat Scan 12/18/20 16:58 Completed XR chest 1V maru ble [id number] Routine Exams 12/20/20 08:19 Completed XR chest 1V maru ble [id number] Stat Exams 12/18/20 18:35 Completed CV echo complete* [id number] Routine Ultrasound 12/19/20 06:00 Completed Pending at discharge Category Date Time Status Blood Culture Sta t Lab 12/18/20 20:03 Results Sputum Culture an d Gram Stain Routi ne Lab 12/19/20 11:49 Uncollected Labs from last 24 hours 12/21/20 12/21/20 12/21/20 10:31 06:12 05:35 WBC RBC Hgb Hct MCV MCH MCHC RDW Plt Count MPV Neut % (Auto) Lymph % (Auto) [place] % (Auto) Eos % (Auto) Baso % (Auto) Neut # (Auto) Lymph # (Auto) [place] # (Auto) Eos # (Auto) Baso # (Auto) Nucleated RBC % (a uto) Nucleated RBCs # Sodium 136 Potassium 4.0 Chloride 100 Carbon Dioxide 28 Anion Gap 12.0 BUN 15 Creatinine 0.8 GFR Calculation Not Reportable Glucose 141 H POC Glucose 155 H 143 H Calculated Osmolal ity 285 Calcium 8.1 L Total Bilirubin 0.3 AST 17 ALT 16 Alkaline Phosphata se 63 Total Protein 6.1 L Albumin 3.1 L Globulin 3.0 12/21/20 12/21/20 12/20/20 05:35 00:29 19:38 WBC 8.7 RBC 4.54 Hgb 13.8 Hct 40.9 L MCV 90.1 MCH 30.4 MCHC 33.7 RDW 11.7 L Plt Count 325 MPV 10.2 Neut % (Auto) 63.6 Lymph % (Auto) 14.3 [place] % (Auto) 17.9 Eos % (Auto) 3.7 Baso % (Auto) 0.2 Neut # (Auto) 5.52 Lymph # (Auto) 1.2 [place] # (Auto) 1.6 H Eos # (Auto) 0.3 Baso # (Auto) 0.0 Nucleated RBC % (a uto) 0 Nucleated RBCs # 0.0 Sodium Potassium Chloride Carbon Dioxide Anion Gap BUN Creatinine GFR Calculation Glucose POC Glucose 80 283 H Calculated Osmolal ity Calcium Total Bilirubin AST ALT Alkaline Phosphata se Total Protein Albumin Globulin 12/20/20 12/20/20 17:18 11:26 WBC RBC Hgb Hct MCV MCH MCHC RDW Plt Count MPV Neut % (Auto) Lymph % (Auto) [place] % (Auto) Eos % (Auto) Baso % (Auto) Neut # (Auto) Lymph # (Auto) [place] # (Auto) Eos # (Auto) Baso # (Auto) Nucleated RBC % (a uto) Nucleated RBCs # Sodium Potassium Chloride Carbon Dioxide Anion Gap BUN Creatinine GFR Calculation Glucose POC Glucose 118 H 219 H Calculated Osmolal ity Calcium Total Bilirubin AST ALT Alkaline Phosphata se Total Protein Albumin Globulin Vitals: Last Vital Signs Temp 98.4 F 12/21/20 07:16 Pulse 70 12/21/20 07:16 Resp 17 12/21/20 07:16 BP 134/63 12/21/20 07:16 Pulse Ox 93 12/21/20 07:16 Discharge Plan Discharge Patient Disposition: Home Condition: Stable Prescriptions: New levofloxacin 750 mg tablet 750 mg PO DAILY 7 Days Qty: 7 RF: 0 Continued lovastatin 10 mg tablet 10 mg PO DAILY RF: 0 insulin asp prt-insulin aspart 100 unit/mL (70-30) insulin pen See Rx Instructions .ROUTE .COMPLEX RF: 0 amlodipine 10 mg tablet 10 mg PO DAILY RF: 0 Aspir-81 81 mg Tablet,Delayed Release (Dr/Ec) 81 mg PO DAILY RF: 0 lisinopril 40 mg tablet 40 mg PO DAILY RF: 0 Discharge Orders: Discharge Order (Routine); Ordered 12/21/20 Ordered By: Rudy Felix Referrals: Edi Bhatia, [Primary Care Provider] - 4-7 days (Consider sleep study as an outpatient, discussed with primary care provider. Consider repeat chest x-ray 3 to 4 weeks to ensure pneumonia clears.) Discharge Diet: Diabetic Discharge Activity: Increase activity as tolerated Patient Instructions: Opioid Safety Activity Restrictions/Additional Instructions: Take all medicine as prescribed Return for any worsening, fever, shortness of breath. Primary care provider to consider repeat chest x-ray 3 to 4 weeks to demonstrate clearing of pneumonia. Discharge Attestations Time Spent in Discharge Care*: greater than 30 min Quality Metrics Clinical Quality Measures During this hospital stay, did patient experience: None Coding Level of Care Code Acute g [facility] note Diagnoses Community acquired pneumonia J18.9 Laterality: right Lung location: lower lobe of lung Type 2 diabetes mellitus E11.9 Hypertension I10
[2020-12-21 11:09] VITALS: BP 147/61; PULSE 67; RESP 16; TEMP 36.8; O2SAT 92
[2020-12-21 11:12] VITALS: BP 147/61; PULSE 67; RESP 16; TEMP 36.8; O2SAT 92
--- NOTE | 2020-12-21 11:36 | PC.NURSE ---
IV removed Iv dc'd with catheter intact sterile 2x2 and coban to nonbleeding site pt tolerated well
== END 2020-12-21 11:55 | disposition home or self-care (01) | DRG 195 ==
LOC: ER 19:34 → MEDSURG 20:08
PROVIDERS: Emergency Medicine; Admitting Provider Hospitalist; Emergency Provider Emergency Medicine; PCP Family Medicine; Visit Provider Internal Medicine
DX: J18.9 Pneumonia, unspecified organism (principal); E11.65 Type 2 diabetes mellitus with hyperglycemia; I10 Essential (primary) hypertension; Z86.73 Personal history of transient ischemic attack (TIA), and cerebral infarction without residual deficits; G57.61 Lesion of plantar nerve, right lower limb; Z79.51 Long term (current) use of inhaled steroids; Z79.82 Long term (current) use of aspirin
CPT/HCPCS: 36415; 36416; 70450; 71045; 80048; 80053; 80061; 81001; 82550; 82962; 83036; 83735; 83880; 84100; 84145; 84484; 85025; 85610; 85730; 86140; 87040; 87426; 93005; 93306; 94640; 96365; 96367; 96372; 99285; G0378; J0456; J0696; J1650; J1815; J7030; J7050; Q0144

== ENCOUNTER 2021-01-27 10:43 | Outpatient (CLI) | payer MEDICARE, OTHER, SELFPAY ==
--- NOTE | 2021-01-27 10:54 | XR_ITS ---
WS: [id number] Chest 2 views, 01/27/2021 Clinical Data: PNEUMONIA Comparison: Portable chest, 12/20/2020. Findings: No nodules, masses or effusions are seen. The heart is normal. The pulmonary vascularity is not increased. No pneumonia or pneumothorax is seen. XR/XR chest 2V* [id number] Impression: Clearing of right middle lobe and/or right lower lobe pneumonia.
== END 2021-01-27 10:44 | disposition home or self-care (01) ==
PROVIDERS: PCP Family Medicine; Visit Provider Family Medicine
DX: J18.9 Pneumonia, unspecified organism (principal)
CPT/HCPCS: 71046

== ENCOUNTER → 2022-03-15 08:22 | Outpatient (BNVA) | payer MEDICARE, OTHER, SELFPAY | PROVIDERS: PCP Family Medicine; Visit Provider Family Medicine | DX: E11.9 Type 2 diabetes mellitus without complications (principal); I10 Essential (primary) hypertension | CPT/HCPCS: 80053; 80061; 82607; 83036; 85025 ==

== ENCOUNTER → 2022-06-13 10:09 | Outpatient (BNVA) | payer MEDICARE, OTHER, SELFPAY | PROVIDERS: PCP Family Medicine; Visit Provider Orthopaedic Surgery | DX: M77.8 Other enthesopathies, not elsewhere classified (principal) | CPT/HCPCS: 73110; 99203 ==

== ENCOUNTER → 2022-07-05 14:37 | Outpatient (BNVA) | payer MEDICARE, OTHER, SELFPAY | PROVIDERS: PCP Family Medicine; Visit Provider Nurse Practitioner Family | DX: J02.9 Acute pharyngitis, unspecified (principal) | CPT/HCPCS: 87880 ==

== ENCOUNTER → 2022-09-03 08:06 | Outpatient (BNVA) | payer MEDICARE, OTHER, SELFPAY | PROVIDERS: PCP Family Medicine | DX: E11.9 Type 2 diabetes mellitus without complications (principal); I10 Essential (primary) hypertension | CPT/HCPCS: 80053; 80061; 82607; 83036; 85025 ==

== ENCOUNTER → 2023-03-15 08:09 | Outpatient (BNVA) | payer MEDICARE, OTHER, SELFPAY | PROVIDERS: PCP Family Medicine; Visit Provider Family Medicine | DX: E11.9 Type 2 diabetes mellitus without complications (principal); I10 Essential (primary) hypertension; Z13.6 Encounter for screening for cardiovascular disorders | CPT/HCPCS: 80053; 80061; 82607; 83036; 85025 ==

== ENCOUNTER → 2023-05-20 10:41 | Outpatient (BNVA) | payer MEDICARE, OTHER, SELFPAY | PROVIDERS: PCP Family Medicine; Visit Provider Psychiatry & Neurology Neurology | DX: R29.898 Other symptoms and signs involving the musculoskeletal system (principal); M54.9 Dorsalgia, unspecified; M54.50 Low back pain, unspecified; R29.6 Repeated falls; G62.9 Polyneuropathy, unspecified | CPT/HCPCS: 99203 ==

== ENCOUNTER 2023-06-26 10:49 | Outpatient (CLI) | payer MEDICARE, OTHER, SELFPAY ==
--- NOTE | 2023-06-26 11:00 | MR_ITS ---
WS: [id number] MRI LUMBAR SPINE WITH AND WITHOUT CONTRAST. HISTORY: M54.9 - Dorsalgia, unspecified COMPARISON: None available. TECHNIQUE: Sagittal and axial multisequence imaging is submitted. Postcontrast imaging MultiHance 18 mL IV. 5 nonrib-bearing type lumbar vertebral bodies. The S1 vertebral body is partially lumbarized. Very slight increase in the lumbar lordosis. No fracture. Small Schmorl's node along the superior end plate of L5. Disc spaces and vertebral body heights are well-preserved. Conus terminates normally at L1-2 disc level. L1-L2: Normal. L2-L3: Normal. L3-L4: Mild annular disc bulging, ligamentum flavum and facet arthritis. No stenosis. L4-L5: Mild annular disc bulging with ligamentum flavum and facet arthritis. Disc encroachment upon t he subarticular recesses. Mild disc contact on the traversing L5 nerve roots. Very mild LEFT foramina l narrowing. There is also a small LEFT foraminal disc protrusion. L5-S1: Mild osteophytic ridging and annular disc bulging. Mild bilateral facet joint arthritis. Mild LEFT foraminal stenosis. Postcontrast images are negative for mass. No discitis or osteomyelitis. IMPRESSION: 1. No high-grade central or foraminal stenosis. 2. Facet joint arthritis and ligamentum flavum arthropathy is mild from L3-4 to L5-S1. 3. Mild disc encroachment upon the subarticular recesses at L4-5. Mild contact of the traversing L5 n erve roots. 4. Very mild LEFT foraminal narrowing at L4-5 and L5-S1. 5. No discitis or osteomyelitis.
== END 2023-06-26 10:50 | disposition home or self-care (01) ==
LOC: RAD 10:49
PROVIDERS: PCP Family Medicine; Visit Provider Psychiatry & Neurology Neurology
DX: M51.26 Other intervertebral disc displacement, lumbar region (principal)
CPT/HCPCS: 72158; A9577

== ENCOUNTER 2023-07-31 11:27 | Outpatient (CLI) | payer MEDICARE, OTHER, SELFPAY ==
--- NOTE | 2023-07-31 11:45 | MR_ITS ---
WS: [id number] MRI BRAIN WITHOUT CONTRAST HISTORY: Falls, unsteady gait. COMPARISON: 05/11/2013 TECHNIQUE: Diffusion imaging, multiplanar T1, T2 and FLAIR imaging obtained. No evidence for acute infarct or hemorrhage. Goode-white matter differentiation is normal. Moderate atrophy and small vessel ischemic disease. Small vessel ischemic disease has significantly p rogressed since 2013. New cortical infarct in the posterior RIGHT frontal lobe. Additional cortical i nfarct is chronic involving the posterior RIGHT occipital lobe. There is an additional smaller cortic al infarct in the posterior medial LEFT occipital lobe. Small lacunar infarct in the LEFT thalamus an d the cortex of the RIGHT temporal lobe. Moderate temporal lobe volume loss and hippocampal atrophy. Ventricles are moderately dilated on the basis of atrophy. No inferior displacement of the cerebellar tonsils. Pituitary gland and sella turcica are negative. Dural venous sinuses and nikolski of Reeves demonstrate no abnormality on this unenhanced studies. Paranasal sinuses: Very tiny air-fluid level RIGHT maxillary sinus. Mastoid air cells: Normal. Calvarium and scalp: Intact. IMPRESSION: 1. Diffusion imaging is normal. No acute infarct or hemorrhage. 2. Moderate progression of small vessel ischemic disease with numerous small lacunar infarcts which are new since 05/11/2013. No acute infarct. 3. Moderate volume loss with ventriculomegaly. Ventriculomegaly on the basis of central and peripher al atrophy. 4. Moderate hippocampal atrophy.
== END 2023-07-31 11:28 | disposition home or self-care (01) ==
LOC: RAD 11:27
PROVIDERS: PCP Family Medicine; Visit Provider Psychiatry & Neurology Neurology
DX: R29.6 Repeated falls (principal); R26.81 Unsteadiness on feet; R29.898 Other symptoms and signs involving the musculoskeletal system; M54.50 Low back pain, unspecified; G62.9 Polyneuropathy, unspecified; Z86.73 Personal history of transient ischemic attack (TIA), and cerebral infarction without residual deficits; I67.89 Other cerebrovascular disease
CPT/HCPCS: 70551

== ENCOUNTER 2023-08-09 07:58 | Outpatient (CLI) | payer MEDICARE, OTHER, SELFPAY ==
--- NOTE | 2023-08-09 08:00 | USCV_ITS ---
Yann Price Age: 73 Gender: M : 1950 Exam Date: 08/09/2023 08:10 Ordering Phys: Leandro Borden MD Technologist: Tonya Alves Exam Location: [facility] – [place]_ Indication: TIA Risk Factors: Previous Vascular Surgery: Right Brachial BP: / Left Brachial BP: / Right Left Velocity (cm/s) Spectral Plaque Velocity (cm/s) Spectral Plaque Syst/Diast Broadening Syst/Diast Broadening 74.60/ 10.90 Prox CCA 98.50 / 15.90 74.90/ 12.10 Mid CCA 115.80/ 20.90 63.70/ 10.90 Distal CCA 94.80 / 18.70 69.30/ 15.70 Prox ICA 66.60 / 24.40 75.20/ 23.10 Mid ICA 76.00 / 17.80 70.60/ 16.80 Distal ICA 78.00 / 18.40 142.00 ECA 168.50 1.00 ICA/CCA 0.67 Antegrade Vertebral Antegrade 39.40/ 9.90 cm/s 60.60/ 10.90 cm/s Tri Subclavian Tri 102.5 100.3 0 0 FINDINGS Comparison: none available. No significant elevation of systolic or diastolic velocities. Waveforms are normal. Mild plaque in the bifurcations and ICA's. CONCLUSIONS Bilateral ICA stenosis less than 50%. Mild carotid atherosclerosis. Dr. Doris Giron DO (Electronically Signed) Final Date: 09 August 2023 10:02 S
--- NOTE | 2023-08-09 08:30 | USCV_ITS ---
Yann Price Age: 73 Gender: M : 1950 Exam Date: 08/09/2023 08:27 Ordering Phys: Leandro Borden MD Technologist: ABILIO Exam Location: [facility] – [place] Indication: TIA BP: 152 / 70 HR: 55 Rhythm: Sinus Technical Quality: Adequate MEASUREMENTS (Male / Female) Normal Values 2D ECHO LVOT Diameter 2.0 cm LV Ejection Fraction MOD 2C 58.6 % LV Ejection Fraction 2C AL 60.1 % LA Diameter 3.8 cm LA Width 4.3 cm LA Height 5.0 cm RA Width 3.8 cm RA Height 4.5 cm Aorta at Sinotubular Diameter 2.9 cm M-MODE Aortic Annulus Diameter 3.1 cm LA Ao Ratio MM 1.1 MV E Point Septal Separation 0.5 cm DOPPLER AV Peak Velocity 110.0 cm/s LVOT Peak Velocity 83.0 cm/s AV Area Cont Eq vti 2.7 cm squared AV Area Cont Eq pk 2.4 cm squared MV Peak Velocity 105.0 cm/s MV Area PHT 3.7 cm squared Mitral E to A Ratio 0.8 MV E' Velocity 40.5 cm/s Mitral E to MV E' Ratio 1.3 Mitral E to LV E' Lateral Ratio 8.9 Mitral E to LV E' Septal Ratio 0.7 TR Peak Velocity 94.0 cm/s TR Peak Gradient 3.5 mmHg TR Mean Velocity 116.0 cm/s TR Mean Gradient 5.5 mmHg TR Velocity Time Integral 44.9 cm Right Atrial Pressure 8.0 mmHg Pulmonary Artery Systolic Pressu 11.5 mmHg PV Peak Velocity 78.0 cm/s RV Acceleration Time 0.1 s RV Ejection Time 0.3 s RV AcT/ET 0.4 FINDINGS Left Ventricle Left ventricle is normal in size. LV systolic function is normal with EF 55 to 60%. No regional wall motion abnormalities are seen. Grade 1 diastolic dysfunction Right Ventricle Normal in size and function Right Atrium Normal in size Left Atrium Dilated. Mitral Valve Structurally normal mitral valve. Mild mitral regurgitation. Aortic Valve Structurally normal aortic valve. No significant stenosis or regurgitation. Tricuspid Valve Mild tricuspid regurgitation. Insufficient TR jet to calculate RVSP. Pulmonic Valve Not well-visualized Pericardium Normal Aorta Normal in size IVC Appears to be normal CONCLUSIONS LV systolic function is normal with EF of 55 to 60%. Grade 1 diastolic dysfunction Left atrial dilation Mild mitral regurgitation Mild tricuspid regurgitation Compared to prior echocardiogram from 2020, patient has mild mitral regurgitation. Chet Lopez MD (Electronically Signed) Final Date: 18 August 2023 20:01 S
== END 2023-08-09 07:59 | disposition home or self-care (01) ==
LOC: RAD 07:58
PROVIDERS: PCP Family Medicine; Visit Provider Psychiatry & Neurology Neurology
DX: G45.9 Transient cerebral ischemic attack, unspecified (principal); G62.9 Polyneuropathy, unspecified; R29.6 Repeated falls; M54.50 Low back pain, unspecified; R29.898 Other symptoms and signs involving the musculoskeletal system
CPT/HCPCS: 93306; 93880

== ENCOUNTER → 2023-09-16 08:06 | Outpatient (BNVA) | payer MEDICARE, OTHER, SELFPAY | PROVIDERS: PCP Family Medicine; Visit Provider Family Medicine | DX: E11.9 Type 2 diabetes mellitus without complications (principal) | CPT/HCPCS: 80053; 80061; 82607; 83036; 85025 ==

== ENCOUNTER → 2023-10-09 14:04 | Outpatient (BNVA) | payer MEDICARE, OTHER, SELFPAY | PROVIDERS: PCP Family Medicine; Visit Provider Psychiatry & Neurology Neurology | DX: Z86.73 Personal history of transient ischemic attack (TIA), and cerebral infarction without residual deficits (principal); R29.898 Other symptoms and signs involving the musculoskeletal system; M54.50 Low back pain, unspecified; R29.6 Repeated falls; E11.42 Type 2 diabetes mellitus with diabetic polyneuropathy; Z79.4 Long term (current) use of insulin | CPT/HCPCS: 99212 ==

== ENCOUNTER → 2023-10-16 13:52 | Outpatient (BNVA) | payer MEDICARE, OTHER, SELFPAY | PROVIDERS: PCP Family Medicine; Referring Provider Psychiatry & Neurology Neurology; Visit Provider Internal Medicine | DX: R07.9 Chest pain, unspecified (principal); I10 Essential (primary) hypertension; E11.9 Type 2 diabetes mellitus without complications; I45.9 Conduction disorder, unspecified; Z86.73 Personal history of transient ischemic attack (TIA), and cerebral infarction without residual deficits | CPT/HCPCS: 93005; 99204 ==

== ENCOUNTER → 2024-03-17 09:35 | Outpatient (BNVA) | payer MEDICARE, OTHER, SELFPAY | PROVIDERS: PCP Family Medicine; Visit Provider Family Medicine | DX: I10 Essential (primary) hypertension (principal); E11.9 Type 2 diabetes mellitus without complications; I63.9 Cerebral infarction, unspecified | CPT/HCPCS: 80053; 80061; 83036 ==

== ENCOUNTER → 2024-04-06 13:16 | Outpatient (BNVA) | payer MEDICARE, OTHER, SELFPAY | PROVIDERS: PCP Family Medicine; Visit Provider Psychiatry & Neurology Neurology | DX: R29.898 Other symptoms and signs involving the musculoskeletal system (principal); I99.8 Other disorder of circulatory system; I63.9 Cerebral infarction, unspecified; R29.90 Unspecified symptoms and signs involving the nervous system; M54.50 Low back pain, unspecified; R29.6 Repeated falls; G62.9 Polyneuropathy, unspecified; Z79.01 Long term (current) use of anticoagulants | CPT/HCPCS: 99212; 99213 ==

== ENCOUNTER → 2024-04-17 09:22 | Outpatient (BNVA) | payer MEDICARE, OTHER, SELFPAY | PROVIDERS: PCP Family Medicine; Visit Provider Internal Medicine | DX: I10 Essential (primary) hypertension (principal); E11.9 Type 2 diabetes mellitus without complications; Z86.73 Personal history of transient ischemic attack (TIA), and cerebral infarction without residual deficits; Z79.4 Long term (current) use of insulin | CPT/HCPCS: 99213 ==

== ENCOUNTER → 2024-06-18 08:31 | Outpatient (BNVA) | payer MEDICARE, OTHER, SELFPAY | PROVIDERS: PCP Family Medicine; Visit Provider Family Medicine | DX: I10 Essential (primary) hypertension (principal); E11.9 Type 2 diabetes mellitus without complications; I63.9 Cerebral infarction, unspecified | CPT/HCPCS: 80053; 80061; 83036 ==

== ENCOUNTER → 2024-09-21 08:13 | Outpatient (BNVA) | payer MEDICARE, OTHER, SELFPAY | PROVIDERS: PCP Family Medicine; Visit Provider Family Medicine | DX: E11.9 Type 2 diabetes mellitus without complications (principal) | CPT/HCPCS: 80053; 80061; 83036 ==

== ENCOUNTER 2024-09-25 09:55 | Outpatient (CLI) | payer MEDICARE, OTHER, SELFPAY ==
--- NOTE | 2024-09-25 10:06 | XR_ITS ---
WS: [id number] Right hip, 2 views, AP pelvis, 09/25/2024 Clinical Data: M25.559 - Pain in unspecified hip Comparison: None. Findings: No fractures or dislocations are seen. The right hip shows no erosion, narrowing, sclerosis, cyst formation or fragmentation of the right femoral head. The left hip is normal. The soft tissues are not remarkable. The adjacent pelvis is normal. XR/XR hip RT 2-3V wo/w pel* [id number] Impression: Negative pelvis and right hip.
== END 2024-09-25 09:56 | disposition home or self-care (01) ==
LOC: RAD 09:56
PROVIDERS: PCP Family Medicine; Visit Provider Family Medicine
DX: M25.551 Pain in right hip (principal)
CPT/HCPCS: 73502

== ENCOUNTER 2024-10-01 13:02 | Outpatient (CLI) | payer MEDICARE, OTHER, SELFPAY ==
--- NOTE | 2024-10-01 13:15 | CTR_ITS ---
PROCEDURE INFORMATION: Exam: CT Lumbar Spine Without Contrast Exam date and time: 10/01/2024 1:10 PM Age: 74 years old Clinical indication: Severe right hip pain into back x 1 month; Additional info: Severe hip pain with negative hip xray TECHNIQUE: Imaging protocol: Computed tomography of the lumbar spine without contrast. Radiation optimization: All CT scans at this facility use at least one of these dose optimization techniques: automated exposure control; mA and/or kV adjustment per patient size (includes targeted exams where dose is matched to clinical indication); or iterative reconstruction. COMPARISON: MR lumbar spine wo/w con [id number] 06/26/2023 11:11 AM RADIATION DOSE METRICS: Total DLP (mGy-cm): 391.92 FINDINGS: Bones/joints: Lumbar vertebral body heights appear maintained, as does alignment. Mild disc space narrowing L4-L5 and L5-S1 levels and disc spaces appear maintained. Spondylotic change involving lumbar vertebra and facets noted. No fracture or subluxation is seen. L1-L2: No significant disc bulge/protrusion. No significant spinal or neural foraminal stenosis. L2-L3: No significant disc bulge/protrusion. No significant spinal or neural foraminal stenosis. L3-L4: Slight disc bulge. Mild ligamentum flavum hypertrophy and facet spondylotic change. No significant spinal or neural foraminal stenosis. L4-L5: Combination of mild disc bulge/protrusion and spondylotic change of the vertebra and facets, along with mild ligamentous hypertrophy. Mild spinal and neural foraminal stenosis. L5-S1: Mild disc bulge along with spondylotic change with vertebral osteophyte and facet spondylotic change. No significant spinal stenosis. Bilateral neural foraminal encroachment, [id number]. Soft tissues: Paravertebral soft tissues show no significant abnormality. CT/CT lumbar spine wo con* [id number] IMPRESSION: Lumbar spondylotic change, more prominent lower lumbar spine L3-L4 through L5-S1 levels, as noted above.
== END 2024-10-01 13:03 | disposition home or self-care (01) ==
PROVIDERS: PCP Family Medicine; Visit Provider Family Medicine
DX: M25.551 Pain in right hip (principal); M47.896 Other spondylosis, lumbar region; M47.897 Other spondylosis, lumbosacral region; M51.369 Other intervertebral disc degeneration, lumbar region without mention of lumbar back pain or lower extremity pain; M24.28 Disorder of ligament, vertebrae; M51.26 Other intervertebral disc displacement, lumbar region; M48.061 Spinal stenosis, lumbar region without neurogenic claudication; M51.379 Other intervertebral disc degeneration, lumbosacral region without mention of lumbar back pain or lower extremity pain; R93.7 Abnormal findings on diagnostic imaging of other parts of musculoskeletal system
CPT/HCPCS: 72131

== ENCOUNTER → 2024-10-05 12:27 | Outpatient (BNVA) | payer MEDICARE, OTHER, SELFPAY | PROVIDERS: PCP Family Medicine; Visit Provider Psychiatry & Neurology Neurology | DX: R29.898 Other symptoms and signs involving the musculoskeletal system (principal); I99.8 Other disorder of circulatory system; I63.9 Cerebral infarction, unspecified; R29.90 Unspecified symptoms and signs involving the nervous system; M54.50 Low back pain, unspecified; R29.6 Repeated falls; G62.9 Polyneuropathy, unspecified | CPT/HCPCS: G0463 ==

== ENCOUNTER 2024-10-15 10:48 | Outpatient (CLI) | payer MEDICARE, OTHER, SELFPAY ==
--- NOTE | 2024-10-15 11:00 | MR_ITS ---
WS: [id number] MRI RIGHT HIP WITHOUT CONTRAST. COMPARISON: RIGHT hip radiograph 09/25/2024 Multiplanar, multisequence imaging is performed without contrast. Mild narrowing of the hip joint. Mild osteophytosis from the superior lateral margin. Acetabular margin. No subchondral cysts. No joint effusion. No fluid in the greater trochanteric bursa. No CAM deformity. No labral tear. No soft tissue abnormality. No significant muscle atrophy and no adenopathy. Urinary bladder is minimally distended. Prostate gland as visualized is enlarged and heterogeneous. MR/MR hip RT wo con* [id number] IMPRESSION: 1. Very mild narrowing of the hip joint. 2. No fracture or edema. No joint effusion.
== END 2024-10-15 10:49 | disposition home or self-care (01) ==
PROVIDERS: PCP Family Medicine; Visit Provider Family Medicine
DX: M25.851 Other specified joint disorders, right hip (principal); R29.898 Other symptoms and signs involving the musculoskeletal system; M25.751 Osteophyte, right hip; N40.0 Benign prostatic hyperplasia without lower urinary tract symptoms
CPT/HCPCS: 73721

== ENCOUNTER → 2024-10-27 08:01 | Outpatient (BNVA) | payer MEDICARE, OTHER, SELFPAY | PROVIDERS: PCP Family Medicine; Visit Provider Student in an Organized Health Care Education/Training Program | DX: M54.50 Low back pain, unspecified (principal); M25.551 Pain in right hip | CPT/HCPCS: 99204 ==

== ENCOUNTER 2024-11-05 05:00 | Outpatient (RCR) | payer MEDICARE, OTHER, SELFPAY | END 2024-12-05 23:59 | disposition home or self-care (01) | LOC: APT 05:00 | PROVIDERS: Visit Provider Orthopaedic Surgery | DX: M54.9 Dorsalgia, unspecified (principal); G89.29 Other chronic pain | CPT/HCPCS: 97110; 97112; 97162; 97530 ==

== ENCOUNTER → 2024-11-10 14:07 | Outpatient (BNVA) | payer MEDICARE, OTHER, SELFPAY | PROVIDERS: PCP Family Medicine; Visit Provider Orthopaedic Surgery | DX: M54.9 Dorsalgia, unspecified (principal); M54.50 Low back pain, unspecified | CPT/HCPCS: 72110; 99203 ==

== ENCOUNTER 2024-12-06 05:00 | Outpatient (RCR) | payer MEDICARE, OTHER, SELFPAY | END 2025-01-04 23:59 | disposition home or self-care (01) | LOC: APT 05:00 | PROVIDERS: Visit Provider Orthopaedic Surgery | DX: M54.9 Dorsalgia, unspecified (principal); G89.29 Other chronic pain | CPT/HCPCS: 97110; 97112; 97530 ==

== ENCOUNTER 2025-01-05 05:00 | Outpatient (RCR) | payer MEDICARE, OTHER, SELFPAY | END 2025-01-19 14:07 | disposition home or self-care (01) | LOC: APT 05:00 | PROVIDERS: Visit Provider Orthopaedic Surgery | DX: M54.9 Dorsalgia, unspecified (principal); G89.29 Other chronic pain | CPT/HCPCS: 97110; 97112; 97530 ==

== ENCOUNTER → 2025-06-17 08:47 | Outpatient (BNVA) | payer MEDICARE, OTHER, SELFPAY | PROVIDERS: PCP Family Medicine; Visit Provider Family Medicine | DX: I10 Essential (primary) hypertension (principal); E11.9 Type 2 diabetes mellitus without complications; N40.0 Benign prostatic hyperplasia without lower urinary tract symptoms; G62.9 Polyneuropathy, unspecified; I63.9 Cerebral infarction, unspecified | CPT/HCPCS: 80053; 80061; 82607; 83036; 85025 ==